=== PATIENT | female | born 1990 | race Two or more races ===

== ENCOUNTER 2021-01-21 19:54 | Emergency (ER) | payer OTHER ==
[~2021-01-21] VITALS: Ht 162.6 cm; Wt 54.9 kg
[2021-01-21 20:16] VITALS: BP 119/89
== END 2021-01-22 02:51 | disposition left against medical advice (07) ==
LOC: ER 19:54
DX: S50.862A Insect bite (nonvenomous) of left forearm, initial encounter (principal); Z53.21 Procedure and treatment not carried out due to patient leaving prior to being seen by health care provider; W57.XXXA Bitten or stung by nonvenomous insect and other nonvenomous arthropods, initial encounter; Y93.89 Activity, other specified; Y92.89 Other specified places as the place of occurrence of the external cause; Y99.8 Other external cause status

== ENCOUNTER 2021-09-23 17:14 | Emergency (ER) | payer OTHER ==
[~2021-09-23] VITALS: Ht 162.6 cm; Wt 57.6 kg
[2021-09-23] MEDS ORDERED: SULF400T11 PO (17:49)
[2021-09-23 18:02] VITALS: BP 129/80
== END 2021-09-23 20:58 | disposition home or self-care (01) ==
LOC: ER 17:14
DX: L03.116 Cellulitis of left lower limb (principal)